=== PATIENT | female | born 2000 | race Two or more races ===

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

== ENCOUNTER 2018-03-17 19:37 | Emergency (ER) | payer MEDICAID ==
[2018-03-17] MEDS ORDERED: ONDANSETRON 4 MG TAB.RAPDIS ONE (20:51)
[2018-03-17] MEDS ORDERED: RINGERS SOLUTION,LACTATED 1,000 ML IV ONE (20:53)
[2018-03-17] MEDS ORDERED: ONDANSETRON HCL INJ/PF 4 MG/2 ML SDV IV ONE (20:54)
--- NOTE | 2018-03-17 20:55 | ER Document Report ---
ED Medical Screen (RME) - General Chief Complaint: Nausea/Vomiting Stated Complaint: WRIST PAIN,VOMTING Time Seen by Provider: 03/17/18 20:53 Mode of Arrival: Wheelchair Information source: Patient Notes: 17-year-old female who was seen last night for right wrist fracture after being thrown from a horse. Patient presents with nausea, vomiting not tolerating pain medicines or even fluids. She is a type I diabetic. Patient denies headache. Her lungs are clear and heart is regular. Her abdomen is soft and nontender. The patient's right extremity is in a splint. Her fingers have good cap refill and are pink. TRAVEL OUTSIDE OF THE [place] IN LAST 30 DAYS: No - Related Data Allergies/Adverse Reactions: No Known Allergies Allergy (Unverified 03/17/18 19:40) Past Medical History - Social History Chew tobacco use (# tins/day): No Frequency of alcohol use: None Drug Abuse: None Renal/ Medical History: Denies: Hx Peritoneal Dialysis Physical Exam - Vital signs Vitals: Temp Pulse Resp BP Pulse Ox 98.7 F 110 H 18 135/77 H 100 03/17/18 20:22 03/17/18 20:22 03/17/18 20:22 03/17/18 20:22 03/17/18 20:22 Course - Vital Signs Vital signs: Temp Pulse Resp BP Pulse Ox 98.7 F 110 H 18 135/77 H 100 03/17/18 20:22 03/17/18 20:22 03/17/18 20:22 03/17/18 20:22 03/17/18 20:22 Doctor's Discharge - Discharge Referrals: TEMI ROSEN MD [Primary Care Provider] - Follow up as needed
[2018-03-17 21:24] LABS: ABSOLUTE BASOPHILS # (AUTO) 0.1 10^3/uL (0.0-0.2); ABSOLUTE LYMPHOCYTES (AUTO) 2.3 10^3/uL (0.5-4.7); ABSOLUTE MONOCYTES (AUTO) 0.5 10^3/uL (0.1-1.4); ABSOLUTE NEUT (AUTO) 7.8 10^3/uL (1.7-8.2); BASOPHILS % (AUTO) 0.5 % (0-2); EOSINOPHILS % (AUTO) 0.3 % (0-6); HEMATOCRIT 45.1 % (36.0-47.0); HEMOGLOBIN 15.3 g/dL (12.0-15.5); LYMPHOCYTES % (AUTO) 21.3 % (13-45); MEAN CORPUSCULAR HEMOGLOBIN 29.7 pg (27.0-33.4); MEAN CORPUSCULAR VOLUME 87 fl (80-97); MONOCYTES % (AUTO) 4.8 % (3-13); PLATELET COUNT 349 10^3/uL (150-450); RED BLOOD COUNT 5.16 10^6/uL (3.72-5.28); RED CELL DISTRIBUTION WIDTH 12.7 % (11.5-14.0); SEGMENTED NEUTROPHILS % (AUTO) 73.1 % (42-78); TOTAL CELLS COUNTED % (AUTO) 100 %; WHITE BLOOD COUNT 10.6 10^3/uL (4.0-10.5)
[2018-03-17 21:43] LABS: ALANINE AMINOTRANSFERASE 26 U/L (5-35); ALBUMIN 4.7 g/dL (3.7-5.6); ALKALINE PHOSPHATASE 112 U/L (50-135); ANION GAP 18 (5-19); ASPARTATE AMINO TRANSFERASE 21 U/L (5-30); BILIRUBIN,DIRECT 0.2 mg/dL (0.0-0.4); BILIRUBIN,TOTAL 0.9 mg/dL (0.2-1.3); BLOOD UREA NITROGEN 7 mg/dL (7-20); CALCIUM 9.9 mg/dL (8.4-10.2); CARBON DIOXIDE 19 mmol/L (22-30); CHLORIDE 106 mmol/L (98-107); GLUCOSE 184 mg/dL (75-110); POTASSIUM 4.4 mmol/L (3.6-5.0); SODIUM 142.7 mmol/L (137-145); TOTAL PROTEIN 8.5 g/dL (6.3-8.2)
[2018-03-17] MEDS ORDERED: ONDANSETRON ODT 4 MG TAB (6 TAB/ER DISP) PO PRN (21:49)
[2018-03-17] MEDS ORDERED: PROMETHAZINE HCL 25 MG SUPP (4 SUPP/ER DISP) PR ONE (21:49)
--- NOTE | 2018-03-17 21:51 | ER Document Report ---
ED General - General Chief Complaint: Nausea/Vomiting Stated Complaint: WRIST PAIN,VOMTING Time Seen by Provider: 03/17/18 20:53 Mode of Arrival: Wheelchair Notes: Patient is a 17-year-old female who presents emergency department with chief complaint of wrist pain and vomiting. Patient reports she was seen here last night, diagnosed with a right wrist fracture. Patient was medicated here in the emergency department with pain medications, mother reports that as soon as they arrived home she began vomiting. Patient has been unable to tolerate any of the pain medicines due to nausea and vomiting. Patient is a type I diabetic. TRAVEL OUTSIDE OF THE [place] IN LAST 30 DAYS: No - Related Data Allergies/Adverse Reactions: No Known Allergies Allergy (Unverified 03/17/18 19:40) Past Medical History - General Information source: Patient - Social History Smoking Status: Never Smoker Chew tobacco use (# tins/day): No Frequency of alcohol use: None Drug Abuse: None Family History: Reviewed & Not Pertinent Patient has suicidal ideation: No Patient has homicidal ideation: No Endocrine Medical History: Reports: Hx Diabetes Mellitus Type 1 Renal/ Medical History: Denies: Hx Peritoneal Dialysis Physical Exam - Vital signs Vitals: Temp Pulse Resp BP Pulse Ox 98.7 F 110 H 18 135/77 H 100 03/17/18 20:22 03/17/18 20:22 03/17/18 20:22 03/17/18 20:22 03/17/18 20:22 - Notes Notes: PHYSICAL EXAMINATION: GENERAL: Well-appearing, well-nourished and in no acute distress. HEAD: Atraumatic, normocephalic. EYES: Pupils equal round extraocular movements intact, conjunctiva are normal. ENT: Nares patent NECK: Normal range of motion LUNGS: No respiratory distress ABDOMEN: Soft and nontender. Musculoskeletal: Normal range of motion, splint in place to left wrist, capillary refill less than 3 seconds, normal sensation and movement distal to area of injury. NEUROLOGICAL: Normal speech, normal gait. PSYCH: Normal mood, normal affect. SKIN: Warm, Dry, normal turgor, no rashes or lesions noted. Course - Re-evaluation Re-evalutation: Initial workup ordered by provider in triage. CBC and comprehensive metabolic panel are unremarkable. Anion gap is within normal limits. Will provide antiemetics so that patient can tolerate food and therefore tolerate her pain medications. Patient already has follow-up scheduled with orthopedics for Saturday. Patient and mother are both agreeable to this plan. - Vital Signs Vital signs: Temp Pulse Resp BP Pulse Ox 98.7 F 73 18 125/71 100 03/17/18 20:22 03/17/18 22:17 03/17/18 22:17 03/17/18 22:17 03/17/18 22:17 - Laboratory Result Diagrams: 03/17/18 21:09 03/17/18 21:09 Laboratory results interpreted by me: 03/17/18 03/17/18 21:09 21:09 WBC 10.6 H Carbon Dioxide 19 L Creatinine 0.49 L Glucose 184 H Total Protein 8.5 H Discharge - Discharge Clinical Impression: Vomiting Qualifiers: Vomiting type: unspecified Vomiting Intractability: unspecified Nausea presence : unspecified Qualified Code(s): R11.10 - Vomiting, unspecified Disposition: HOME, SELF-CARE Additional Instructions: Please take the antinausea medication as prescribed. Try to get some food in her stomach before taking another dose of the pain medication. As the previous provider explained to you it is very important to take ibuprofen 600 mg every 6 hours as this will help with the inflammation. Please keep the follow-up appointment with orthopedics on Saturday as scheduled. Return to the emergency department for any other concerns. Prescriptions: Ibuprofen 600 mg PO Q6H #30 tablet Ondansetron [Zofran Odt 4 mg Tablet] 1 - 2 tab PO Q4H PRN #15 tab.rapdis PRN Reason: For Nausea/Vomiting Promethazine HCl [Phenergan 25 mg Supp.rect] 1 supp AL Q6H #12 supp.rect Referrals: TEMI ROSEN MD [Primary Care Provider] - Follow up as needed
[2018-03-17 22:19] VITALS: BP 125/71
== END 2018-03-17 22:17 | disposition home or self-care (01) ==
LOC: ER 19:37
DX: R11.2 Nausea with vomiting, unspecified (principal); E10.9 Type 1 diabetes mellitus without complications; S62.101D Fracture of unspecified carpal bone, right wrist, subsequent encounter for fracture with routine healing; V80.010D Animal-rider injured by fall from or being thrown from horse in noncollision accident, subsequent encounter
CPT/HCPCS: 99284; 96361; 96374; 36415; 85025; 80053; J3490; J2405; J7120